=== PATIENT | female | born 1950 | race Caucasian/White ===

== ENCOUNTER → 2019-06-26 | Outpatient (CLI) | payer MEDICARE, BC ==
[~2019-06-26] MED LIST: ATOR80TA PO; CLOP75TA28 PO; FAM20T PO; IOHEXOL 350 MG/ML 100ML IJ ONE; LEV50T PO; LISI10TA6 PO
[2019-06-26 13:05] VITALS: BP 127/79
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
--- NOTE | 2019-06-26 13:25 | NUR ---
IV removal IV DC'd with sterile technique, catheter fully intact. Pressure dressing applied to site. Patient tolerated procedure well. Discharged with aftercare instructions per MD. NOTE: PT ON PLAVIX SITE BLED A LITTLE HAD TO APPLY EXTRA PRESSURE
[2019-06-26 13:29] VITALS: BP 155/73
--- NOTE | 2019-06-26 13:29 | NUR ---
Discharge Instructions See e-MAR for any mediations given with this visit. Patient education given on disease process. Patient verbalized understanding. Previous labs reviewed. Patient discharged in stable condition with after care instructions and follow up appointment.
--- NOTE | 2019-06-26 13:30 | NUR ---
IV insertion IV access obtained, via clean sterile technique by inserting 22 gauge catheter at after attempt(s). IV secured properly. No trauma to site. Patient tolerated procedure well.
== END | disposition home or self-care (01) ==
LOC: Rad HDHVI 12:47
PROVIDERS: ATTEND Internal Medicine Cardiovascular Disease
DX: G31.9 Degenerative disease of nervous system, unspecified (principal); R94.4 Abnormal results of kidney function studies; R53.83 Other fatigue
CPT/HCPCS: 36415; 70470; 82565; 93306; G0463; Q9967